=== PATIENT | female | born 1970 | race Caucasian/White ===

== ENCOUNTER → 2017-02-09 | Outpatient (CLI) | payer OTHER | LOC: FIMAGING 11:03 | PROVIDERS: ATTEND Family Medicine | DX: N92.0 Excessive and frequent menstruation with regular cycle (principal); N85.8 Other specified noninflammatory disorders of uterus ==

== ENCOUNTER 2017-03-10 09:11 | Observation (INO) | payer OTHER ==
--- NOTE | 2017-03-09 12:06 | PDGENHP ---
History and Physical History and Physical: PREOPERATIVE HISTORY AND PHYSICAL EXAM DATE OF ADMISSION: 03/10/2017 PLANNED PROCEDURE: Total Laparoscopic Hysterectomy and Bilateral Salpingectomy HISTORY OF PRESENT ILLNESS: 46 year-old white female with heavy vaginal bleeding , passage of blood clots from vagina, and intermenstrual bleeding (menorrhagia) for greater than past 5-6 months. Naa is status post endometrial biopsy, performed 02/10/2017, which revealed no hyperplasia or malignancy. She is also status post oral progesterone therapy. After several clinic visits and discussion of management options including conservative, medical management ( i.e., with Mirena IUD, tranexamic acid or Provera) and surgical options (i.e., hysteroscopy, D&C, endometrial ablation, and hysterectomy), Naa prefers hysterectomy. Naa consented to laparoscopic hysterectomy with prophylactic salpingectomy after reviewing risks, benefits and alternatives to procedure. MEDICAL HISTORY: 1. Essential hypertension 2. History of atrial tachycardia (2013) 3. History of perinephric abscess with rupture and IV antibiotic therapy x 2 weeks (2011) CURRENT MEDICATIONS: 1. Hydrochlorothiazide 25 mg PO daily 2. Metoprolol tartrate 50 mg PO BID 3. Losartan 100 mg PO daily SURGICAL HISTORY: 1. Laparoscopic appendectomy (2014) 2. Repeat delivery (2008) 3. Primary delivery (2005) ALLERGIES: No known drug allergies. SOCIAL HISTORY: , lives with 2 children, former tobacco user (up to 1 ppd, quit 12 years ago). FAMILY MEDICAL HISTORY: Mother has history of breast cancer (diagnosed and treated in her 40s) and her mother also had hysterectomy secondary to symptomatic anemia from vaginal bleeding. OBSTETRICAL/GYNECOLOGIC HISTORY: , status post 2 deliveries (in 2005 and 2008, respectively). REVIEW OF SYSTEMS: GENERAL: Denies generalized faintness or fatigue HENT: Denies headache, vision changes, sore throat PULM: Denies cough, shortness of breath CV: Denies palpitations, chest pain GI: Denies nausea, vomiting, diarrhea, constipation : Denies dysuria, admits to unpredictable heavy vaginal bleeding 7-10 days/ month, denies vaginal discharge, Last menstrual period: 02/16/2017 MSK: Denies significant swelling in extremities SKIN: Denies rash, or new lesion NEURO: Denies numbness, weakness, tingling PSYCH: Denies significant mood changes PHYSICAL EXAM: (performed in [facility], on 03/01/2017) VITALS: BP 110/60; weight 227 lbs GENERAL APPEARANCE: Alert & oriented x 3 HENT: Normocephalic, atraumatic, supple HEART: RRR, no M/R/G LUNGS: CTAB, no wheezes, no rhonchi ABDOMEN: Obese, non-distended, non-tender PELVIC EXAM: performed on 02/10/2017 in clinic: no vulvar lesions, pink, healthy redundant vaginal mucosa, no cervical motion tenderness, difficult to examine uterus secondary to abdominal habitus. LABS/IMAGING: PELVIC ULTRASOUND: performed 02/09/2017; uterus measures within normal size limits (9.7 x 4.7 x 4.2 cm); thin endometrial lining (3 mm); no leiomyoma identified; normal ovaries and no adnexal masses identified. H&H: performed 02/25/2017; 13.9 g/dL & 42.6%; platelets 407,000. Endometrial biopsy: performed 02/10/2017; no hyperplasia or malignancy. PRIOR PAP/HPV TESTING: performed 02/2016, negative pap, positive HR (16/18) HPV , negative colposcopy. ASSESSMENT: 46 year-old white female with menorrhagia who desires definitive therapy. PLAN: Total laparoscopic hysterectomy with bilateral salpingectomy to be performed at [facility] on 03/10/2017.
[~2017-03-10 09:11] MED LIST: ceFAZolin 2 GM in D5W 100 ML IV ONE; ceFAZolin 2 GM/DEXTROSE 100 ML IV ONE; cefOXitin SODIUM 2 GM in D5W 100 ML IV ONE
[2017-03-10] MEDS ORDERED: LR 1,000 ML IV ONE (09:42)
--- NOTE | 2017-03-10 10:39 | PDHPUP ---
History & Physical Update H&P update statement: This history and physical update is based on an assessment of the patient which was completed after admission or registration (within 24 hours), but prior to the surgery/procedure. H&P update: H&P reviewed & patient examined, no change in patient's condition since H&P completed
[2017-03-10] MEDS ORDERED: BUPIVACAINE 0.25% 30 ML SDV ONE (10:58)
[2017-03-10] MEDS ORDERED: SILVER NITRATE APPLICATOR 1 APPL TP ONE (10:59)
[2017-03-10] MEDS ORDERED: MIDAZOLAM 2 MG/2 ML VIAL IVP ONE (11:08)
--- NOTE | 2017-03-10 11:08 | PDANEPAE ---
ANE Past Medical History - Cardiovascular History Hx Hypertension: Yes Hx Arrhythmias: No Hx Chest Pain: No Hx Coronary Artery / Peripheral Vascular Disease: No Hx CHF / Valvular Disease: No Hx Palpitations: Yes Cardiovascular History Comment: FAMILY MD MANAGES BP. PSVT INTERMITTENT PALPITATIONS - Pulmonary History Hx COPD: No Hx Asthma/Reactive Airway Disease: No Hx Recent Upper Respiratory Infection: Yes Hx Oxygen in Use at Home: No Hx Sleep Apnea: No Pulmonary History Comment: URI 01/21/2017 - Neurologic History Hx Cerebrovascular Accident: No Hx Seizures: No Hx Dementia: No - Endocrine History Hx Diabetes: No Hypothyroid: No Hyperthyroid: No Obesity: severe - Renal History Hx Renal Disorders: Yes Renal History Comment: PERINEPHRIC ABCESS 2011 - Liver History Hx Hepatic Disorders: No - Neurological & Psychiatric Hx Hx Neurological and Psychiatric Disorders: No - Cancer History Hx Cancer: No - Congenital Disorder History Hx Congenital Disorders: No - GI History Hx Gastrointestinal Disorders: No - Other Health History Other Health History: MENORRHAGIA - Chronic Pain History Chronic Pain: No - Surgical History Prior Surgeries: REMVL BONE SPURS DONNA FEET. APPENDECTOMY. X2 ANE Review of Systems Review of Systems: - Exercise capacity METS (RN): 4 METS ANE Patient History - Allergies Allergies/Adverse Reactions: Estrogens Allergy (Verified 02/24/17 15:13) LOOPY - Home Medications Home Medications: Hydrochlorothiazide [HCTZ (*)] 25 mg PO DAILY 12/26/13 [Last Taken 03/09/17] Losartan Potassium DAILY 02/24/17 [Last Taken 03/10/17] - NPO status NPO Since - Liquids (Date): 03/09/17 NPO Since - Liquids (Time): 18:00 NPO Since - Solids (Date): 03/09/17 NPO Since - Solids (Time): 18:00 - Smoking Hx Smoking Status: Former smoker ANE Labs/Vital Signs - Vital Signs Blood Pressure: 132/87 Heart Rate: 81 Respiratory Rate: 16 O2 Sat (%): 95 Height: 170.18 cm Weight: 101.151 kg ANE Physical Exam - Airway Neck exam: FROM Mallampati Score: Class 1 Mouth exam: normal dental/mouth exam - Pulmonary Pulmonary: no respiratory distress - Cardiovascular Cardiovascular: regular rate and rhythym - ASA Status ASA Status: II ANE Anesthesia Plan Anesthesia Plan: general endotracheal anesthesia
[2017-03-10] MEDS: ceFAZolin 2 GM in D5W 100 ML IV ONE ×2 (11:22→13:17)
[2017-03-10] MEDS ORDERED: MIDAZOLAM 2 MG/2 ML VIAL ONE (11:24)
[2017-03-10] MEDS ORDERED: PROPOFOL/EMULSION 500 MG/50 ML BOTTLE IV ONE (11:35)
[2017-03-10] MEDS ORDERED: fentaNYL 100 MCG/2 ML INJ ONE ×5 (11:39→16:18)
[2017-03-10] MEDS ORDERED: LIDOCAINE 2% 5 ML SDV ONE (12:08)
[2017-03-10] MEDS ORDERED: ONDANSETRON 4 MG/2 ML VIAL ONE (12:08)
[2017-03-10] MEDS ORDERED: ROCURONIUM 100 MG/10 ML VIAL ONE (12:08)
[2017-03-10] MEDS ORDERED: KETOROLAC 30 MG/1 ML SDV ONE (12:08)
[2017-03-10] MEDS ORDERED: DEXAMETHASONE 4 MG/ML VIAL ONE (12:08)
[2017-03-10] MEDS ORDERED: METHYLENE BLUE 0.5% 50 MG/10 ML AMP ONE (13:54)
[2017-03-10] MEDS ORDERED: NALOXONE HCL 0.4 MG/ML INJ IVP PRN (15:30)
[2017-03-10] MEDS ORDERED: LR 500 ML IV PRN (15:30)
[2017-03-10] MEDS ORDERED: PROMETHAZINE HCL 25 MG/ML INJ IVP PRN (15:30)
[2017-03-10] MEDS ORDERED: HYDROCODONE/APAP 5/325 TAB PO PRN (15:30)
[2017-03-10] MEDS ORDERED: LABETALOL HCL 50 MG/10 ML SYR IVP PRN (15:30)
--- NOTE | 2017-03-10 15:31 | POSTANESTH ---
Post Anesthetic Evaluation Cardiovascular Status: Normal, Stable Respiratory Status: Normal, Stable Level of Consciousness/Mental Status: Can Participate in Eval Pain Control: Adequate, Prn Tx Ordered Nausea/Vomiting Control: Adequate, Prn Tx Ordered Complications Possibly Related to Anesthesia: None Noted
[2017-03-10] MEDS: fentaNYL 100 MCG/2 ML INJ IVP PRN ×3 (15:41→16:22)
[2017-03-10] MEDS ORDERED: KETOROLAC 30 MG/1 ML SDV IVP PRN (15:54)
[2017-03-10] MEDS ORDERED: ONDANSETRON 4 MG/2 ML VIAL IVP PRN (15:54)
[2017-03-10] MEDS ORDERED: ONDANSETRON DISINTEGRATING 4 MG TAB PO PRN (15:54)
[2017-03-10] MEDS ORDERED: OXYCODONE/APAP 5/325 TAB PO PRN (15:54)
[2017-03-10] MEDS ORDERED: ZOLPIDEM TARTRATE 5 MG TAB PO PRN (15:54)
[2017-03-10] MEDS ORDERED: LR 1,000 ML IV SCH (16:00)
[2017-03-10] MEDS ORDERED: HYDROCODONE/APAP 5/325 TAB ONE (16:20)
--- NOTE | 2017-03-10 17:20 | POSTOPPROG ---
Post Op Note Date of Operation: 03/10/17 Surgeon: Kartik Stern Hide Salter: Emelia Chavez MD Anesthesia: GET(General Endotracheal) Pre-op Diagnosis: Menorrhagia Post-op Diagnosis: Menorrhagia, Intraperitoneal adhesions Indication: 46 yo WF with menorrhagia, desires definitive treatment Procedure: TLH, bilateral salpingectomy Findings: Normal-sized uterus, adhesion of bladder to uterus, evidence of prior tubal Inf/Abcess present in the surg proc area at time of surgery?: No Depth: Organ Space EBL: 100-500 Total fluids administered: 2400 mL Complications: None
--- NOTE | 2017-03-10 17:43 | SUROPNOTE ---
[facility] Operative Report - Surgery OPERATIVE REPORT DATE OF OPERATION: 03/10/2017 SURGEON: Crow Stern MD BURRER MACHINE: Emelia Chavez MD ANESTHESIA: General Endotracheal PREOPERATIVE DIAGNOSIS: Menorrhagia POSTOPERATIVE DIAGNOSIS: Menorrhagia, Intraperitoneal adhesions PROCEDURES PERFORMED: 1. Total laparoscopic hysterectomy 2. Bilateral salpingectomy FINDINGS: Normal-sized uterus, normal-appearing ovaries, previously ligated bilateral fallopian tubes, evidence of intraperitoneal adhesions--specifically between bladder and anterior uterine serosa. SPECIMENS: Uterine fundus and cervix, bilateral fimbriated ends of fallopian tubes. EBL: 150 mL INDICATIONS: 46 year-old white-female with menorrhagia status post failed attempt at progesterone therapy. She has decided that she wants hysterectomy instead of ablation. Risks, benefits and alternatives of procedure were discussed. She gave verbal and written consent for laparoscopic hysterectomy and prophylactic bilateral salpingectomy. DESCRIPTION OF PROCEDURE: Anesthesia/prep: After general anesthesia was found to be adequate, the patient was prepped and draped in the usual sterile fashion and placed in the dorsal lithotomy position. A suction beanbag was used to safely secure the patient in position. Perineum: A time-out was performed and attention was moved to the perineum. Exam under anesthesia confirmed significant uterine prolapse of a small uterus. Uterus was sounded to 7 cm. A ELEAZAR manipulator was placed with a small CRISTAL ring attached. Olvera catheter was anchored. Abdomen: Attention was moved to the abdomen, where a 5 mm port was placed at the umbilicus, using the Optiview method. Once confirmation of intraperitoneal location was confirmed, CO2 was insufflated to a pressure of 15 mmHg. Under direct visualization, additional ports were placed; a 10 mm port in the left lower quadrant and a 5 mm port in the right lower quadrant. Marcaine with epinephrine was injected locally at each of these sites before small skin incisions were made with 11-blade scalpel to accommodate placement. The patient was placed in steep Trendelenburg position and laparoscope was used to make a systematic examination of the peritoneal cavity and pelvis. Normal bowel and bowel viscera was observed with significant adhesion of bowel and bowel mesentery near the left pelvic brim. The pelvis appeared grossly normal. Bilateral ureters were not identified at pelvic brim due to inability to isolate this peritoneum overlying ureters. Ovaries appeared grossly normal and fallopian tubes showed evidence of prior tubal ligation. The bladder was adhesed to anterior aspect of uterus. Starting with the left utero-ovarian ligament, the Ligasure devise was used to clamp, ligate and cut the tissue to create the pedicle. The round ligament, broad ligament and cardinal ligments were then clamped, ligated and cut on the right side in a similar fashion using the Ligasure device. The uterine artery was identified on the left side of the cervix, near the edge of the CRISTAL ring border and clamp, ligated and cut. Attention was moved to the contralateral side of the uterus, the right side and the same procedure was performed using the Ligasure device. After cutting and sealing the right uterine artery, blunt and sharp dissection was performed to create a bladder flap. The Ligasure hook was used circumferentially create the colpotomy in conjunction with the underlying CRISTAL ring. Bleeding was easily attended to with the Ligasure. With completion of the 360-degree colpotomy, the specimen was moved through the vagina. Pneumoperitoneum was maintained by keeping the uterus in the vagina. The vaginal cuff was closed with a running single-layer 0 V-Lock suture and the Endostitch device. This provided a secure cuff closure. The posterior peritoneum was incorporated into the cuff closure. The right, then the left fallopian tube distal remnants were isolated, elevated and removed with Ligasure device and through 10 mm port. Good hemostasis was seen, along the cuff and at all pedicle sites. Irrigation and suction was performed. Cystourethroscopy: A diagnostic cystoscopic setupincluding a 70-degree telescope and sheath, 4mm in diameter, was introduced through the urethral meatus gently and carefully into the urinary bladder. The dome and bladder mucosa appeared grossly normal with no injury and with air bubbles in dome. The bladder trigone was identified and bilateral ureteral jets were seen, enhanced with methylene blue which had been injected minutes prior. Cystoscope was removed. Skin closure: The skin was closed with subcuticular stitches using 3-0 Monocryl. Bandaids were also applied to the skin incisions. The patient tolerated the procedure well and was taken to the PACU awake and in stable condition. FLUIDS GIVEN DURING THE PROCEDURE: Approximately 2400 mL. DRAINS: Olvera catheter was attached at the end of the procedure. COMPLICATIONS: None immediate.
[2017-03-10] MEDS: HYDROCODONE/APAP 5/325 TAB PO PRN (20:32)
[2017-03-10] MEDS: METOPROLOL TARTRATE 50 MG TAB PO SCH (21:15)
[2017-03-10] MEDS: KETOROLAC 30 MG/1 ML SDV IVP PRN (21:17)
[2017-03-11] MEDS: HYDROCODONE/APAP 5/325 TAB PO PRN ×2 (02:00→11:40)
[2017-03-11] MEDS: KETOROLAC 30 MG/1 ML SDV IVP PRN (05:59)
[2017-03-11 06:08] LABS: HEMATOCRIT 38.5 % (38.0-47.0); HEMOGLOBIN 13.2 g/dL (12.6-16.3)
[2017-03-11] MEDS: METOPROLOL TARTRATE 50 MG TAB PO SCH (07:51)
[2017-03-11 07:54] VITALS: RESP 20
[2017-03-11] MEDS ORDERED: HYDROCHLOROTHIAZIDE 25 MG TAB PO SCH (09:00)
[2017-03-11] MEDS ORDERED: LOSARTAN POTASSIUM 50 MG TAB PO SCH (09:00)
--- NOTE | 2017-03-11 10:46 | SOAPPROG ---
SOAP Progress Note Assessment/Plan: Assessment: 46 yo WF POD#1 s/p TLH/BS doing well. Plan: Discharge home today. 03/11/17 10:43 Subjective: Patient is ambulating, tolerating pain with PO medication, voiding spontaneously s/p Olvera removal, and tolerating normal diet. She denies passing flatus. She desires DC home today. Objective: Vital Signs Temp Pulse Resp BP Pulse Ox 36.6 C 79 20 130/90 H 94 03/11/17 07:25 03/11/17 07:51 03/11/17 07:25 03/11/17 07:52 03/11/17 07:25 Laboratory Results 03/11/17 05:50 03/10/17 03/11/17 03/12/17 05:59 05:59 05:59 Intake Total 640 Output Total 1425 Balance -785 Physical Exam - Physical Exam General Appearance: WD/WN, alert, no apparent distress Respiratory: lungs clear Cardiac/Chest: regular rate, rhythm Abdomen: normal bowel sounds, other (Incisions are clean/dry/intact x 3) Pelvic Exam: deferred Skin: normal color, warm/dry Extremities: non-tender, normal inspection Neuro/Psych: alert, normal mood/affect, oriented x 3 ICD10 Worksheet Patient Problems: Problems Problem Status Onset Paroxysmal a-fib Acute
[2017-03-11 12:59] VITALS: BP 119/73; PULSE 84; TEMP 98.4; O2SAT 92
[2017-03-11] MEDS ORDERED: IBUPROFEN 600 MG TAB PO SCH ×2 (15:58→18:00)
== END 2017-03-11 14:30 | disposition home or self-care (01) ==
LOC: FSGY 09:11 → F3E 15:54 → FOB 17:18
PROVIDERS: ADMIT Obstetrics & Gynecology Gynecology; ATTEND Obstetrics & Gynecology Gynecology
DX: N92.0 Excessive and frequent menstruation with regular cycle (principal); I10 Essential (primary) hypertension
CPT/HCPCS: 52000; 58571; G0378; J0690; J0694; J1100; J1885; J2250; J2405; J2704; J3010; Q9968